=== PATIENT | female | born 1990 | race Caucasian/White ===

== ENCOUNTER 2016-06-06 08:59 | Emergency (ER) | payer OTHER ==
[2016-06-06 09:12] VITALS: BMI 29.8
[2016-06-06] MEDS ORDERED: ACETAMINOPHEN 325 MG TABLET (FP) ONE (09:22)
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
[2016-06-06] MEDS ORDERED: ACETAMINOPHEN 325 MG TABLET (FP) PO ONE (09:29)
[2016-06-06] MEDS ORDERED: IBUPROFEN 400 MG TABLET (FP) PO ONE ×2 (11:06→11:29)
[2016-06-06 11:34] VITALS: BP 138/88; PULSE 81; TEMP 97.9
== END 2016-06-06 11:34 | disposition home or self-care (01) ==
LOC: JER 08:59
DX: S39.012A Strain of muscle, fascia and tendon of lower back, initial encounter (principal); M25.562 Pain in left knee; S09.8XXA Other specified injuries of head, initial encounter; V73.5XXA Driver of bus injured in collision with car, pick-up truck or van in traffic accident, initial encounter; Y92.412 Parkway as the place of occurrence of the external cause; Y93.89 Activity, other specified; Y99.0 Civilian activity done for income or pay
CPT/HCPCS: 73552-TC-LT; 73560-TC-LT; 99282-25

== ENCOUNTER 2018-08-14 17:56 | Emergency (ER) | payer OTHER ==
--- NOTE | 2018-08-14 18:42 | PDOC ---
Rapid Medical Evaluation Time Seen by Provider: 08/14/18 18:20 Medical Evaluation: Allergies Allergy/AdvReac Type Severity Reaction Status Date / Time No Known Allergies Allergy Verified 06/06/16 09:12 08/14/18 18:40 HPI: Lower abdominal pain + PE: Deferred ORDERS: Pelvic US and labs Discharge Disposition - Diagnosis Pelvic pain - Referrals - Patient Instructions - Post Discharge Activity
[2018-08-14 18:44] VITALS: BP 130/91; PULSE 80; TEMP 98.2; BMI 27.4
--- NOTE | 2018-08-14 19:23 | PDOC ---
*Physical Exam - Vital Signs Last Vital Signs Temp Pulse Resp BP Pulse Ox 98.2 F 80 17 130/91 100 08/14/18 18:41 08/14/18 18:41 08/14/18 18:41 08/14/18 18:41 08/14/18 18:41 ED Treatment Course - LABORATORY CBC & Chemistry Diagram: 08/14/18 19:45 08/14/18 19:45 Medical Decision Making - Medical Decision Making 08/14/18 19:22 Patient seen by the advanced practice provider under my direct supervision. Ancillary testing reviewed as necessary. I agree with plan as outlined by the advanced practice provider. *DC/Admit/Observation/Transfer Diagnosis at time of Disposition: Pelvic pain - Referrals - Patient Instructions - Post Discharge Activity
[2018-08-14] MEDS ORDERED: ACETAMINOPHEN 500 MG TABLET (FP) PO ONE (19:42)
--- NOTE | 2018-08-14 19:45 | PDOC ---
History of Present Illness - General Chief Complaint: Pain Stated Complaint: ABDOMINAL PAIN/ Time Seen by Provider: 08/14/18 18:20 History Source: Patient Exam Limitations: No Limitations - History of Present Illness Travel History: No Initial Comments: 08/14/18 19:39 HISTORY OF PRESENT ILLNESS: 27-year-old woman with a past medical history of right ovarian cyst 2, gastric sleeve with subsequent Hernan-en-Y bypass on with a last menstrual period of 4/5 who is 6 para 2 presents emergency Department with lower abdominal pain starting this morning. Patient is unable to describe the abdominal pain reports a constant sensation that is unrelieved by heat packs or ice. Patient has not taken any [id number] medications. Patient reports 4 days ago she had hematuria for which she was treated with an unknown antibiotic. She reports the hematuria and dysuria have resolved since treatment. Patient is currently having loose brown stools 2 today denies any blood in the stool. She denies any vaginal bleeding or rectal bleeding. She denies any nausea. vomiting, fevers, chills. No recent travel or sick contacts. PAST MEDICAL HISTORY: see HPI SURGICAL HISTORY: see HPI ALLERGIES: No known drug allergies REVIEW OF SYSTEMS General/Constitutional: Denies fever or chills. Denies weakness, weight change. HEENT: Denies change in vision. Denies ear pain or discharge. Denies sore throat. Cardiovascular: Denies chest pain or shortness of breath. Respiratory: Denies cough, wheezing, or hemoptysis. Gastrointestinal: see HPI Genitourinary: Denies dysuria, frequency, or change in urination. Musculoskeletal: Denies joint or muscle swelling or pain. Denies neck or back pain. Skin and breasts: Denies rash or easy bruising. Neurologic: Denies headache, vertigo, loss of consciousness, or loss of sensation. Psychiatric: Denies depression or anxiety. Endocrine: Denies increased thirst. Denies abnormal weight change. Hematologic/Lymphatic: Denies anemia, easy bleeding, or history of blood clots. Allergic/Immunologic: Denies hives or skin allergy. Denies latex allergy. PHYSICAL EXAM General Appearance: Well-appearing, appropriately dressed. No apparent distress , no intoxication. Respiratory/Chest: Lungs CTAB. No shortness of breath, chest tenderness, respiratory distress, accessory muscle use. No crackles, rales, rhonchi, stridor , wheezing, dullness Cardiovascular: RRR. S1, S2. No JVD, murmur, bradycardia, tachycardia. Gastrointestinal/Abdominal: Normal bowel sounds. Abdomen soft, non-distended. Suprapubic tenderness present. No rebound tenderness. No organomegaly, pulsatile mass, guarding, hernia, hepatomegaly, splenomegaly. Lymphatic: No adenopathy, tenderness. 08/14/18 19:57 Past History - Past Medical History Allergies/Adverse Reactions: Allergies Allergy/AdvReac Type Severity Reaction Status Date / Time No Known Allergies Allergy Verified 08/14/18 18:41 Home Medications: Ambulatory Orders Metronidazole 500 mg PO BID #14 tablet 08/14/18 95/Iron Fum/Folic/Dha [ + Dha Combo Pack] 1 each PO DAILY #30 combo..pkg 08/14/18 Asthma: Yes COPD: No CHF: No - Immunization History Immunization Up to Date: Yes - Suicide/Smoking/Psychosocial Hx Smoking History: Never smoked Hx Alcohol Use: No Drug/Substance Use Hx: No Substance Use Type: None *Physical Exam - Vital Signs Last Vital Signs Temp Pulse Resp BP Pulse Ox 98.2 F 80 17 130/91 100 08/14/18 18:41 08/14/18 18:41 08/14/18 18:41 08/14/18 18:41 08/14/18 18:41 - Physical Exam Comments:: 08/14/18 19:59 COUNSELING SERVICES MANAGER performed with SHAHAB Fermin present as short story writer Female Pelvic Exam: positive: normal external exam, cervical os closed, normal adnexa, normal size ovaries, discharge (thin green discharge). negative: CMT, Bartholin mass, adnexal tenderness, vaginal bleeding ED Treatment Course - LABORATORY CBC & Chemistry Diagram: 08/14/18 19:45 08/14/18 19:45 Medical Decision Making - Medical Decision Making 08/14/18 19:43 A/P: 27-year-old woman with positive lower abdominal pain starting today Differential diagnosis includes but not limited to- ovarian torsion, ovarian cysts, ectopic , urinary tract infection, colitis, BV Labs urine transvaginal ultrasound Tylenol 1 g orally now reassess 08/14/18 20:01 08/14/18 22:14 Ultrasound as read by Dr. Colon: Tiny issue uterine gestational sac like structure measuring 2.6 mm compatible with 5 weeks of gestation. No pole or yolk sac identified. Likely corpus luteum cyst in the left ovary measuring 1.9 cm. Large right ovarian simple cyst measuring 4.8 cm in maximum dimension and adjacent small complex cyst measuring 2 x 1.2 cm that may represent a hemorrhagic cyst. Correlation with serial quantitative serum beta hCG and close follow-up ultrasound as needed for further evaluation. Laboratory testing is unremarkable with a beta hCG of 1006 Urinalysis notable for 3+ ketones. Discharge home to follow-up with OB *DC/Admit/Observation/Transfer Diagnosis at time of Disposition: BV (bacterial vaginosis) - Discharge Dispostion Disposition: HOME Condition at time of disposition: Fair Decision to Admit order: No - Prescriptions Prescriptions: Metronidazole 500 mg PO BID #14 tablet 95/Iron Fum/Folic/Dha [ + Dha Combo Pack] 1 each PO DAILY #30 combo..pkg - Referrals - Patient Instructions Additional Instructions: Take vitamins daily. Take Flagyl 500 mg twice a day for the next 7 days. Make an appointment with your ASSESSMENT COORDINATOR for reevaluation and a formal visit. Return to the emergency department for any vaginal bleeding, worsening abdominal pain or for any other concerns. Thank you very much for treasonous provider emergent health care needs. - Post Discharge Activity
[2018-08-14 20:02] LABS: BASO % 0.5 % (0-2.0); EOS % 1.5 % (0-4.5); HEMATOCRIT 35.4 % (32.4-45.2); LYMPH % 43.6 % (8-40); MCH 24.6 pg (25.7-33.7); MCHC 31.1 g/dl (32.0-36.0); MEAN CELL VOLUME 79.2 fl (80-96); MONO % 8.1 % (3.8-10.2); NEUT % 46.3 % (42.8-82.8); PLATELET COUNT 312 K/MM3 (134-434); RBC 4.47 M/mm3 (3.60-5.2); RDW 14.9 % (11.6-15.6); WHITE BLOOD COUNT 6.6 K/mm3 (4.0-10.0)
[2018-08-14] MEDS ORDERED: ACETAMINOPHEN 325 MG TABLET (FP) ONE (20:09)
[2018-08-14 20:19] LABS: INR 1.05 (0.83-1.09); PROTHROMBIN TIME (PATIENT) 12.4 SEC (9.7-13.0)
[2018-08-14 20:51] LABS: ALBUMIN 3.8 g/dl (3.4-5.0); BILIRUBIN,TOTAL 0.4 mg/dL (0.2-1); CREATININE 0.6 mg/dL (0.55-1.3); POTASSIUM 4.1 mmol/L (3.5-5.1); TOT PROT 7.2 g/dl (6.4-8.2)
[2018-08-14 21:48] LABS: URINE APPEARANCE CLEAR; URINE BILIRUBIN NEGATIVE (NEGATIVE); URINE COLOR YELLOW; URINE GLUCOSE (UA) NEGATIVE (NEGATIVE); URINE KETONE 3+ (NEGATIVE); URINE LEUK ESTERASE NEGATIVE (NEGATIVE); URINE NITRITE NEGATIVE (NEGATIVE); URINE PROTEIN NEGATIVE (NEGATIVE)
== END 2018-08-14 23:38 | disposition home or self-care (01) ==
LOC: JER 17:56
DX: O26.891 Other specified pregnancy related conditions, first trimester (principal); O23.591 Infection of other part of genital tract in pregnancy, first trimester; B96.89 Other specified bacterial agents as the cause of diseases classified elsewhere; O34.81 Maternal care for other abnormalities of pelvic organs, first trimester; N83.292 Other ovarian cyst, left side; N83.291 Other ovarian cyst, right side; Z3A.01 Less than 8 weeks gestation of pregnancy
CPT/HCPCS: 36415; 76817-TC; 80053; 81003; 84702; 85025; 85610; 87086; 99281-25